=== PATIENT | female | born 1965 | race Caucasian/White ===

== ENCOUNTER 2022-08-18 09:44 | Day surgery (SDC) | payer OTHER ==
[~2022-08-18] VITALS: Ht 137.2 cm; Wt 136.5 kg
[2022-08-18] MEDS ORDERED: diphenhydrAMINE 50 MG/ML VIAL ONE (10:43)
[2022-08-18] MEDS ORDERED: MIDAZOLAM 2 MG/2 ML VIAL ONE (10:43)
[2022-08-18] MEDS ORDERED: fentaNYL citrate 0.05 MG/ML VIAL ONE (10:43)
[2022-08-18] MEDS: MIDAZOLAM 2 MG/2 ML VIAL IVP ONE (10:54)
[2022-08-18] MEDS: fentaNYL citrate 0.05 MG/ML VIAL IVP ONE (10:55)
[2022-08-18] MEDS: LIDOCAINE 2% 100 MG/5 ML UJET TP ONE (10:55)
[2022-08-18] MEDS: diphenhydrAMINE 50 MG/ML VIAL IVP ONE (11:00)
== END 2022-08-18 12:10 | disposition home or self-care (01) ==
LOC: MDS 09:44 → MMU 09:44 → MDS 12:10
PROVIDERS: ATTEND Internal Medicine Gastroenterology
DX: Z12.11 Encounter for screening for malignant neoplasm of colon (principal); K63.5 Polyp of colon; I10 Essential (primary) hypertension; E11.9 Type 2 diabetes mellitus without complications; E66.09 Other obesity due to excess calories; Z79.82 Long term (current) use of aspirin; Z79.899 Other long term (current) drug therapy; Z68.45 Body mass index [BMI] 70 or greater, adult; Z20.822 Contact with and (suspected) exposure to COVID-19
CPT/HCPCS: 45385; 87426; J1200; J2250; J3010